=== PATIENT | female | born 1975 | race Caucasian/White ===

== ENCOUNTER 2018-04-25 16:53 | Emergency (ER) | payer OTHER ==
[~2018-04-25] VITALS: Ht 162.6 cm; Wt 81.6 kg
[~2018-04-25 16:53] MED LIST: ACETAMINOPHEN500 M1 PO; CLINDAMYCIN HC300 MG PO; GABAPENTIN600 MG PO; GAS RELIEF125 MG PO; INTESTINEX1 CAP PO; LEVSIN/SL0.125 MG PO; MAXFE CAPLET1 EACH; PEPCID20 MG PO; PEPCID40 MG PO; POLY119PG PO; PREVACID30 MG PO; PROTONIX40 MG PO; ZOFRAN4 MG PO
== END 2018-04-25 19:32 | disposition home or self-care (01) ==
LOC: ER 16:53
DX: R10.84 Generalized abdominal pain (principal); R19.7 Diarrhea, unspecified

== ENCOUNTER 2023-10-10 23:01 | Emergency (ER) | payer OTHER ==
[~2023-10-10] VITALS: Ht 162.6 cm; Wt 83.9 kg
[2023-10-10] MEDS ORDERED: CALCIUM500 M2 (23:23)
[2023-10-11] MEDS ORDERED: DEXAMETHASONE SODIUM PHOSPHATE 4 MG/ML VIAL IM STA (00:18)
[2023-10-11] MEDS ORDERED: GUAIFENESIN/DEXTROMETHORPHAN 100 MG/5 ML ML PO STA (00:18)
[2023-10-11] MEDS ORDERED: ACETAMINOPHEN 500 MG GEL..CAP PO STA (00:18)
[2023-10-11 01:07] LABS: HEMATOCRIT 39.4 % (36.0-45.00); HEMOGLOBIN 13.3 g/dL (12.0-15.00); MEAN CELL VOLUME 87.1 fL (80.00-100.00); MEAN CORPUSCULAR HEMOGLOBIN 29.3 pg (27.00-32.0); MEAN CORPUSCULAR HGB CONC 33.7 g/dl (32.0-36.0); PLATELET COUNT 186 K/uL (150-450); RED BLOOD COUNT 4.53 M/uL (4.00-6.00); RED CELL DISTRIBUTION WIDTH 14.3 % (11.5-14.5)
[2023-10-11 01:35] LABS: CREATININE SERUM 0.81 mg/dL (0.55-1.02); GFR 75.47; POTASSIUM 3.65 mEq/L (3.5-5.1)
[2023-10-11] MEDS ORDERED: MOXIFLOXACIN H400 MG PO (02:15)
[2023-10-11] MEDS ORDERED: MEDROLPACK PO (02:15)
[2023-10-11] MEDS ORDERED: MUCINEX DM ER1 EAC1 PO (02:15)
[2023-10-11] MEDS ORDERED: BUDESONIDE0.5 MG/21 IH (02:15)
== END 2023-10-11 02:22 | disposition home or self-care (01) ==
LOC: ER 23:02
PROVIDERS: General Practice
DX: J40 Bronchitis, not specified as acute or chronic (principal); J06.9 Acute upper respiratory infection, unspecified; R05.9 Cough, unspecified; E16.1 Other hypoglycemia; Z88.6 Allergy status to analgesic agent

== ENCOUNTER 2023-10-17 20:11 | Emergency (ER) | payer OTHER ==
[~2023-10-17] VITALS: Ht 162.6 cm; Wt 82.6 kg
[~2023-10-17 20:11] MED LIST changes: +BUDESONIDE0.5 MG/21 IH; +CALCIUM500 M2; +MEDROLPACK PO; +MOXIFLOXACIN H400 MG PO; +MUCINEX DM ER1 EAC1 PO
[2023-10-17] MEDS ORDERED: 0.9 % SODIUM CHLORIDE 1,000 ML IV ONE (21:30)
[2023-10-17] MEDS ORDERED: LACTOBACILLUS ACIDOPHILUS 1 CAP CAP PO ONE (21:30)
[2023-10-17] MEDS ORDERED: HYOSCYAMINE SULFATE 0.125 MG TAB.SUBL SL ONE (21:30)
[2023-10-17] MEDS ORDERED: FAMOTIDINE/PF 20 MG/2 ML VIAL IV ONE (21:30)
[2023-10-17 22:07] LABS: HEMATOCRIT 40.1 % (36.0-45.00); HEMOGLOBIN 13.7 g/dL (12.0-15.00); MEAN CELL VOLUME 86.6 fL (80.00-100.00); MEAN CORPUSCULAR HEMOGLOBIN 29.6 pg (27.00-32.0); MEAN CORPUSCULAR HGB CONC 34.1 g/dl (32.0-36.0); PLATELET COUNT 187 K/uL (150-450); RED BLOOD COUNT 4.63 M/uL (4.00-6.00); RED CELL DISTRIBUTION WIDTH 14.4 % (11.5-14.5)
[2023-10-17 22:33] LABS: ALBUMIN 3.7 gm/dL (3.4-5.0); BILIRUBIN TOTAL 0.29 mg/dL (0.3-1.2); CALCIUM 9.1 mg/dL (8.5-10.1); CREATININE SERUM 0.75 mg/dL (0.55-1.02); GFR 82.48; GLOBULINA 2.9 G/DL (2.4-3.5); POTASSIUM 3.64 mEq/L (3.5-5.1); TOTAL PROTEIN 6.6 gm/dL (6.4-8.2)
[2023-10-17 23:10] LABS: URINE APPEARANCE Clear; URINE BILIRRUBIN Negative (NEGATIVE); URINE BLOOD Negative; URINE COLOR Yellow; URINE GLUCOSE Negative (NEGATIVE); URINE LEUKOCYTE Small; URINE NITRATE Negative; URINE PROTEIN Negative (NEGATIVE); URINE UROBILINOGEN 0.2 E.U./dl
[2023-10-17 23:14] LABS: URINE BACTERIA 80.6 uL (0.0-1933); URINE EPITHELIAL CELLS 8.3 uL (0.0-38.8); URINE RBC 5.6 uL (0.0-20.8); URINE WBC 43.5 uL (0.0-23.2)
[2023-10-17] MEDS ORDERED: INTESTINEX680 M1 PO (23:57)
[2023-10-17] MEDS ORDERED: LEVSIN/SL0.125 MG SL (23:57)
[2023-10-17] MEDS ORDERED: PEPCID AC20 MG PO (23:57)
== END 2023-10-18 00:11 ==
LOC: ER 20:11
PROVIDERS: Nurse Practitioner Family
DX: K52.89 Other specified noninfective gastroenteritis and colitis (principal); R10.84 Generalized abdominal pain; K29.70 Gastritis, unspecified, without bleeding; D68.09 Other von Willebrand disease; M85.88 Other specified disorders of bone density and structure, other site; M79.7 Fibromyalgia; Z88.0 Allergy status to penicillin; Z88.2 Allergy status to sulfonamides; Z88.6 Allergy status to analgesic agent; Z91.013 Allergy to seafood; E16.1 Other hypoglycemia

== ENCOUNTER 2023-10-23 00:21 | Emergency (ER) | payer OTHER ==
[~2023-10-23] VITALS: Ht 162.6 cm; Wt 82.6 kg
[~2023-10-23 00:21] MED LIST changes: +INTESTINEX680 M1 PO; +LEVSIN/SL0.125 MG SL; +PEPCID AC20 MG PO
[2023-10-23] MEDS ORDERED: ORPHENADRINE CITRATE 30 MG/ML AMPUL IM STA (03:06)
[2023-10-23] MEDS ORDERED: ZANAFLEX4 MG PO (04:31)
== END 2023-10-23 04:35 ==
LOC: ER 00:22
DX: S39.012A Strain of muscle, fascia and tendon of lower back, initial encounter (principal); X58.XXXA Exposure to other specified factors, initial encounter; Y93.9 Activity, unspecified; Y92.9 Unspecified place or not applicable; Y99.9 Unspecified external cause status

== ENCOUNTER 2024-06-23 10:26 | Emergency (ER) | payer OTHER ==
[~2024-06-23] VITALS: Ht 162.6 cm; Wt 79.8 kg
[~2024-06-23 10:26] MED LIST changes: +ZANAFLEX4 MG PO
[2024-06-23 10:56] VITALS: BP 126/89; O2SAT 100
[2024-06-23] MEDS ORDERED: FAMOtidine 10 MG/ML (4ML VIAL) IV STA (11:45)
[2024-06-23] MEDS ORDERED: METOCLOPRAMIDE HCL 10 MG in DEXTROSE 5 % IN WATER 50 ML IV ONE (11:45)
[2024-06-23 12:07] LABS: HEMOGLOBIN 14.8 g/dL (12.0-15.00); MEAN CELL VOLUME 86.8 fL (80.00-100.00); MEAN CORPUSCULAR HGB CONC 34.5 g/dl (32.0-36.0); PLATELET COUNT 179 K/uL (150-450); RED BLOOD COUNT 4.95 M/uL (4.00-6.00); RED CELL DISTRIBUTION WIDTH 14.3 % (11.5-14.5)
[2024-06-23 12:24] LABS: PH,URINE 6.5 (5.0-8.0); URINE APPEARANCE Clear; URINE BILIRRUBIN Negative (NEGATIVE); URINE BLOOD Negative; URINE COLOR Yellow; URINE GLUCOSE Negative (NEGATIVE); URINE KETONE Negative (NEGATIVE); URINE LEUKOCYTE Negative; URINE NITRATE Negative; URINE PROTEIN Negative (NEGATIVE); URINE UROBILINOGEN 0.2 E.U./dl
[2024-06-23 12:25] LABS: URINE BACTERIA 17.6 uL (0.0-1933); URINE EPITHELIAL CELLS 2.7 uL (0.0-38.8); URINE RBC 5.1 uL (0.0-20.8)
[2024-06-23 12:28] LABS: INR 1.08; PARTIAL THROMBOPLASTIN TIME 28.4 SECONDS (22.0-34.0); PROTHROMBIN TIME 11.7 SECONDS (9.0-11.5)
[2024-06-23 12:34] LABS: URINE WBC 0.4 uL (0.0-23.2)
[2024-06-23 12:40] LABS: ALBUMIN 4.1 gm/dL (3.4-5.0); ALKALINE PHOSPHATASE 81 U/L (50-136); ALT/SGPT 34 U/L (12-78); ANION GAP 9 (10.0-20.0); AST/SGOT 24 U/L (15-37); BILIRUBIN TOTAL 0.27 mg/dL (0.3-1.2); BILIRUBIN,CONJUGATED < 0.10 mg/dL (0.0-0.2); BILIRUBIN,UNCONJUGATED 0.17 mg/dL (0.0-0.6); BLOOD UREA NITROGEN 22 mg/dL (7-18); BUN CREA RATIO 29 (7.0-25.0); CALCIUM 9.5 mg/dL (8.5-10.1); CARBON DIOXIDE 28 mEq/L (21-32); CHLORIDE 109 mmol/L (98-107); CREATININE SERUM 0.75 mg/dL (0.55-1.02); GFR 82.13; GLUCOSE FASTING 93 mg/dL (65-100); OSMOLALITY SERUM 286 MOSM/KG (275-295); POTASSIUM 4.01 mEq/L (3.5-5.1); SODIUM 142 mmol/L (136-145)
== END 2024-06-23 14:31 | disposition home or self-care (01) ==
LOC: ER 10:28
PROVIDERS: General Practice
DX: R10.13 Epigastric pain (principal); R05.8 Other specified cough; Z91.041 Radiographic dye allergy status; Z88.0 Allergy status to penicillin; Z88.2 Allergy status to sulfonamides; Z88.6 Allergy status to analgesic agent; Z91.013 Allergy to seafood; K29.70 Gastritis, unspecified, without bleeding; B67.8 Echinococcosis, unspecified, of liver
CPT/HCPCS: 36415; 71046; 76700; 96365; 99284; J2765; J3490

== ENCOUNTER 2024-07-04 19:15 | Emergency (ER) | payer OTHER ==
[~2024-07-04] VITALS: Ht 162.6 cm; Wt 78.0 kg
[2024-07-04] MEDS ORDERED: 0.9 % SODIUM CHLORIDE 1,000 ML IV STA (19:50)
[2024-07-04] MEDS ORDERED: MEPERIDINE HCL/PF 50 MG/ML VIAL IM ONE (20:00)
[2024-07-04 20:43] LABS: HEMATOCRIT 41.6 % (36.0-45.00); HEMOGLOBIN 14.2 g/dL (12.0-15.00); MEAN CELL VOLUME 87.7 fL (80.00-100.00); MEAN CORPUSCULAR HGB CONC 34.2 g/dl (32.0-36.0); PLATELET COUNT 168 K/uL (150-450); RED BLOOD COUNT 4.74 M/uL (4.00-6.00); RED CELL DISTRIBUTION WIDTH 13.6 % (11.5-14.5)
[2024-07-04 20:49] LABS: CALCIUM 8.9 mg/dL (8.5-10.1); CREATININE SERUM 0.84 mg/dL (0.55-1.02); GFR 72.06; POTASSIUM 3.44 mEq/L (3.5-5.1)
[2024-07-04 21:10] LABS: URINE APPEARANCE Clear; URINE BILIRRUBIN Negative (NEGATIVE); URINE BLOOD Negative; URINE COLOR Dark Yellow; URINE KETONE Trace (NEGATIVE); URINE LEUKOCYTE Negative; URINE NITRATE Negative; URINE PROTEIN Trace (NEGATIVE)
[2024-07-04 21:14] LABS: URINE EPITHELIAL CELLS 5.8 uL (0.0-38.8); URINE RBC 7.9 uL (0.0-20.8); URINE WBC 8.3 uL (0.0-23.2)
[2024-07-04] MEDS ORDERED: DEXAMETHASONE SODIUM PHOSPHATE 4 MG/ML VIAL IV ONE (21:15)
[2024-07-04 21:39] LABS: URINE GLUCOSE 500 MG/DL (NEGATIVE)
[2024-07-05] MEDS ORDERED: FAMOTIDINE/PF 20 MG/2 ML VIAL IV PUSH STA (00:31)
[2024-07-05] MEDS ORDERED: PROMETHAZINE HCL 50 MG/ML AMPUL IM STA (00:31)
[2024-07-05] MEDS ORDERED: MEPERIDINE HCL/PF 25 MG/ML VIAL IM STA (00:31)
[2024-07-05 02:14] LABS: AMYLASE 60 U/L (25-115); LIPASE 41 U/L (13-75)
[2024-07-05] MEDS ORDERED: LEVSIN/SL0.125 MG SL (06:34)
[2024-07-05] MEDS ORDERED: ZOFRAN8 MG PO (06:34)
== END 2024-07-05 06:54 ==
LOC: ER 19:17
PROVIDERS: Emergency Medicine; General Practice
DX: K29.70 Gastritis, unspecified, without bleeding (principal); Z91.041 Radiographic dye allergy status; N20.0 Calculus of kidney

== ENCOUNTER 2025-04-17 16:47 | Emergency (ER) | payer OTHER ==
[~2025-04-17] VITALS: Ht 162.6 cm; Wt 72.6 kg
[~2025-04-17 16:47] MED LIST changes: +ZOFRAN8 MG PO
[2025-04-17] MEDS ORDERED: BENZONATATE 100 MG CAPSULE PO STA (21:42)
[2025-04-17] MEDS ORDERED: MAG HYDROX/ALUMINUM HYD/SIMETH 30 ML BLIST.PACK PO STA (21:43)
[2025-04-17] MEDS ORDERED: LIDOCAINE HCL VISCOUS 20MG/ML BLIST 15ML MM STA (21:43)
[2025-04-17 22:13] LABS: BASO % 0.7 % (0.1-1.2); EOS # 0.27 (0.04-0.54); EOS % 4.5 % (0.7-7.0); LYMPH # 1.69 (1.18-3.74); LYMPH % 28.0 % (19.3-53.1); MEAN PLATELET VOLUME 10.30 fl (9.4-12.4); MONO # 0.58 (0.24-0.82); MONO % 9.6 % (4.7-12.5); NEUT # 3.44 (1.56-6.13); NEUT % 57.0 % (34.0-71.1); RED CELL DISTRIBUTION WIDTH 13.2 % (11.6-14.4)
[2025-04-17] MEDS ORDERED: ZITHROMAX TRI-500 MG PO (22:43)
[2025-04-17] MEDS ORDERED: GILTUSS COUGH-118 M1 PO (22:43)
[2025-04-17] MEDS ORDERED: ACETAMINOPHEN500 M1 PO (22:43)
[2025-04-17 23:34] LABS: COVID-19 AG NEGATIVE (NEGATIVE)
[2025-04-18] MEDS ORDERED: BENZONATATE200 M1 PO (00:20)
== END 2025-04-18 01:30 | disposition home or self-care (01) ==
LOC: ER 16:50
PROVIDERS: Preventive Medicine Public Health & General Preventive Medicine
DX: J06.9 Acute upper respiratory infection, unspecified (principal); D68.09 Other von Willebrand disease; M79.7 Fibromyalgia; Z91.041 Radiographic dye allergy status; Z88.0 Allergy status to penicillin; Z88.2 Allergy status to sulfonamides; Z88.6 Allergy status to analgesic agent; Z91.013 Allergy to seafood; Z20.822 Contact with and (suspected) exposure to COVID-19

== ENCOUNTER 2025-06-29 02:50 | Emergency (ER) | payer OTHER ==
[~2025-06-29] VITALS: Ht 162.6 cm; Wt 72.6 kg
[~2025-06-29 02:50] MED LIST changes: +BENZONATATE200 M1 PO; +DOLOGESIC-DF 51 EACH PO; +GILTUSS COUGH-118 M1 PO; +MECLIZINE HCL25 MG PO; +ZITHROMAX TRI-500 MG PO; +ZITHROMAX500 MG PO; +ZYNCOF 20-400120 ML PO
[2025-06-29 03:12] VITALS: BP 114/75; O2SAT 100
[2025-06-29] MEDS ORDERED: CRESTOR40 MG (03:12)
[2025-06-29] MEDS ORDERED: FAMOTIDINE/PF 20 MG/2 ML VIAL IV PUSH STA (03:54)
[2025-06-29] MEDS ORDERED: HYDROCODONE/CHLORPHEN P-STIREX 5 ML ML PO STA (03:55)
[2025-06-29] MEDS ORDERED: SUCRALFATE 1 G TABLET PO STA (03:55)
[2025-06-29] MEDS ORDERED: FAMOTIDINE/PF 20 MG/2 ML VIAL ONE (04:08)
== END 2025-06-29 06:12 ==
LOC: ER 02:50
DX: R05.8 Other specified cough (principal); Z91.041 Radiographic dye allergy status; Z91.013 Allergy to seafood; Z88.2 Allergy status to sulfonamides; Z88.0 Allergy status to penicillin; Z88.6 Allergy status to analgesic agent; K21.9 Gastro-esophageal reflux disease without esophagitis